=== PATIENT | female | born 1950 | race Caucasian/White ===

== ENCOUNTER 2016-06-17 12:33 | Observation (INO) | payer OTHER ==
[2016-06-17] MEDS ORDERED: Albuterol-Ipratrop 3 mg / 0.5 (3 ml) UD ONE ×2 (12:37→14:40)
[2016-06-17] MEDS ORDERED: Albuterol-Ipratrop 3 mg / 0.5 (3 ml) UD INH STA ×2 (12:48→13:54)
[2016-06-17 14:45] LABS: BASO % 0.2 % (0.0-2.0); EOS # 0.3 K/uL (0.0-0.7); EOS % 5.3 % (0.0-4.0); HEMATOCRIT 39.6 % (34.0-47.0); LYMPH # 1.4 K/uL (1.0-4.3); LYMPH % 23.9 % (20.0-40.0); MEAN CELL VOLUME 85.5 fL (81.0-99.0); MEAN CORPUSCULAR HEMOGLOBIN 28.3 pg (27.0-31.0); MEAN CORPUSCULAR HGB CONC 33.1 g/dL (33.0-37.0); MEAN PLATELET VOLUME 11.2 fL (7.2-11.7); MONO # 0.4 K/uL (0.0-0.8); MONO % 6.3 % (0.0-10.0); RED CELL DISTRIBUTION WIDTH 14.1 % (11.5-14.5); WHITE BLOOD COUNT 5.9 K/uL (4.8-10.8)
[2016-06-17 14:53] LABS: CHLORIDE 99 mmol/L (98-107)
[2016-06-17 14:54] LABS: SODIUM 144 mmol/L (132-148)
[2016-06-17 14:56] LABS: ALB/GLOB RATIO 1.2 (1.0-2.1); ALKALINE PHOSPHATASE 76 U/L (38-126); AST/SGOT 48 U/L (14-36); BILIRUBIN,TOTAL 1.1 mg/dL (0.2-1.3); CARBON DIOXIDE 30 mmol/L (22-30); GFR AFRICAN-AMERICAN > 60; POTASSIUM 4.8 mmol/L (3.6-5.2); TOTAL PROTEIN 8.1 g/dL (6.3-8.3)
[2016-06-17 14:57] LABS: ALT/SGPT 34 U/L (9-52); BLOOD UREA NITROGEN 11 mg/dL (7-17); CALCIUM 9.2 mg/dl (8.6-10.4); GLUCOSE,RANDOM 88 mg/dL (65-105)
--- NOTE | 2016-06-17 15:11 | RAD ---
HISTORY: SOB COMPARISON: None available TECHNIQUE: Chest, one view. FINDINGS: Examination limited by habitus. LUNGS: Minimal interstitial prominence and peribronchiolar cuffing centrally. No focal consolidation. Please note that chest x-ray has limited sensitivity for the detection of pulmonary masses. PLEURA: No significant pleural effusion identified. No definite pneumothorax . CARDIOVASCULAR: The cardiomediastinal silhouette appears within normal limits of size. OSSEOUS STRUCTURES: No acute osseous abnormality identified. VISUALIZED UPPER ABDOMEN: Unremarkable. OTHER FINDINGS: None. IMPRESSION: Minimal interstitial prominence and peribronchiolar cuffing centrally. Findings consistent with mild reactive or inflammatory airway disease.
--- NOTE | 2016-06-17 15:33 | C.PDOC ---
History Of Present Illness 65 year old female presents to the ED with complaints of vague chest discomfort for the past 2 days. Patient states she was seen by Dr. Nereida Singh earlier today for asthma and was given steroids, nebulizer, and nebulizer machine. She has no other complaints at this time. Time Seen by Provider: 06/17/16 13:48 Chief Complaint (Nursing): Respiratory Distress History Per: Patient History/Exam Limitations: no limitations Onset/Duration Of Symptoms: Days Current Symptoms Are (Timing): Still Present Severity: Mild Past Medical History Reviewed: Historical Data, Nursing Documentation, Vital Signs Vital Signs: Last Vital Signs Temp 97.8 F 06/17/16 16:34 Pulse 88 06/17/16 19:31 Resp 18 06/17/16 16:28 BP 145/90 06/17/16 16:28 Pulse Ox 98 06/17/16 16:33 - Medical History PMH: Asthma, HTN Family History: States: Unknown Family Hx - Social History Hx Alcohol Use: No Hx Substance Use: No Review Of Systems Except As Marked, All Systems Reviewed And Found Negative. Constitutional: Negative for: Fever, Chills, Sweats Cardiovascular: Positive for: Chest Pain. Negative for: Palpitations Respiratory: Negative for: Cough, Shortness of Breath Gastrointestinal: Negative for: Vomiting Physical Exam - Physical Exam Appears: Non-toxic, No Acute Distress Skin: Normal Color, Warm, Dry Head: Atraumatic, Normacephalic Eye(s): bilateral: Normal Inspection Oral Mucosa: Moist Chest: Symmetrical, No Deformity, No Tenderness Cardiovascular: Rhythm Regular Respiratory: No Accessory Muscle Use, No Rales, No Rhonchi, Wheezing (+Mild scattered wheezing) Gastrointestinal/Abdominal: Soft Extremity: Normal ROM, No Deformity Neurological/Psych: Oriented x3, Normal Speech, Normal Cognition ED Course And Treatment - Laboratory Results Result Diagrams: 06/17/16 14:40 06/17/16 14:40 O2 Sat by Pulse Oximetry: 98 (Room air) Pulse Ox Interpretation: Normal - Radiology CXR: Viewed By Me, Read By Radiologist CXR Interpretation: Yes: Other (Minimal interstitial prominence and peribronchiolar cuffing centrally. Findings consistent with mild reactive or inflammatory airway disease.) Progress Note: CXR, EKG, Flu swab, Blood work, and Urinalysis ordered and reviewed. Patient treated with Prednisone, Pepcid, NTG, Lovenox, and DuoNeb. Medical Decision Making Medical Decision Making: seen by PMD this AM, prescribed neb machine, steroid taper, box of duonebs so no new Rx's go write for this pts MILD sob/wheezing. Perhaps sent to r/o ACS because of [facility]scp/borning, now with positive trop and normal CXR ASA and lovenox ordered 1545: paged Dr. Rojas covering pt's for Dr. Nereida Singh, ok to Tele obs d/w Son @ bedside, pt had similar + troponin episode 05/22 with ? Cardiology follow-up No daily cardiac labs. Disposition Doctor Will See Patient In The: Hospital Counseled Patient/Family Regarding: Studies Performed, Diagnosis - Disposition Disposition: HOSPITALIZED Disposition Time: 15:47 Condition: GOOD - Clinical Impression Clinical Impression: Chest pain, Asthma, Troponin level elevated - Scribe Statement The provider has reviewed the documentation as recorded by the Scribe Juaquin Mtz. Provider Attestation: All medical record entries made by the Scribe were at my direction and personally dictated by me. I have reviewed the chart and agree that the record accurately reflects my personal performance of the history, physical exam, medical decision making, and the department course for this patient. I have also personally directed, reviewed, and agree with the discharge instructions and disposition.
[2016-06-17 15:41] LABS: RBC URINE 1 /hpf (0-3); URINE BILIRUBIN NEGATIVE (NEGATIVE); URINE BLOOD NEGATIVE (NEGATIVE); URINE COLOR Straw (YELLOW); URINE GLUCOSE (UA) NORMAL (Normal); URINE KETONE NEGATIVE (NEGATIVE); URINE LEUKOCYTE ESTERASE NEG Leu/uL (Negative); URINE PROTEIN NEGATIVE (NEGATIVE); URINE UROBILINOGEN NORMAL mg/dL (0.2-1.0); WBC URINE 2 /hpf (0-5)
[2016-06-17] MEDS ORDERED: Enoxaparin 60 mg Syringe SC STA (15:42)
[2016-06-17] MEDS ORDERED: Enoxaparin 80 mg Syringe ONE (15:55)
[2016-06-17] MEDS ORDERED: Nitroglycerin 2% Ointment Foilpak UD TOP STA (16:14)
[2016-06-17] MEDS ORDERED: Nitroglycerin 2% Ointment Foilpak UD TOP ONE (16:28)
[2016-06-17] MEDS: Albuterol-Ipratrop 3 mg / 0.5 (3 ml) UD INH SCH (19:27)
[2016-06-17] MEDS: MethylPREDNISolone 40 mg Vial IVP SCH (19:27)
[2016-06-18] MEDS: Albuterol-Ipratrop 3 mg / 0.5 (3 ml) UD INH SCH ×4 (01:09→19:10)
[2016-06-18] MEDS: MethylPREDNISolone 40 mg Vial IVP SCH ×3 (02:38→18:35)
[2016-06-18 05:10] LABS: BASO % 0.1 % (0.0-2.0); LYMPH # 0.6 K/uL (1.0-4.3); LYMPH % 11.3 % (20.0-40.0); MEAN CELL VOLUME 85.9 fL (81.0-99.0); MEAN CORPUSCULAR HEMOGLOBIN 28.5 pg (27.0-31.0); MEAN CORPUSCULAR HGB CONC 33.1 g/dL (33.0-37.0); MEAN PLATELET VOLUME 11.8 fL (7.2-11.7); MONO % 0.9 % (0.0-10.0); NRBC % 0.2 % (0.0-2.0); WHITE BLOOD COUNT 5.2 K/uL (4.8-10.8)
[2016-06-18 05:13] LABS: CHLORIDE 98 mmol/L (98-107); POTASSIUM 3.8 mmol/L (3.6-5.2); SODIUM 144 mmol/L (132-148)
[2016-06-18 05:15] LABS: ALB/GLOB RATIO 1.2 (1.0-2.1); AST/SGOT 25 U/L (14-36); BILIRUBIN,TOTAL 0.5 mg/dL (0.2-1.3); CARBON DIOXIDE 30 mmol/L (22-30); GFR AFRICAN-AMERICAN > 60; TOTAL PROTEIN 7.1 g/dL (6.3-8.3)
[2016-06-18 05:16] LABS: ALKALINE PHOSPHATASE 66 U/L (38-126); ALT/SGPT 27 U/L (9-52); BLOOD UREA NITROGEN 20 mg/dL (7-17); CALCIUM 9.1 mg/dl (8.6-10.4); GLUCOSE,RANDOM 158 mg/dL (65-105)
[2016-06-18] MEDS: Enoxaparin 40 mg Syringe SC SCH (09:41)
--- NOTE | 2016-06-18 14:37 | CP.PCM.HP ---
History of Present Illness - History of Present Illness History of Present Illness: COMPREHENSIVE HISTORY & PHYSICAL EXAM HPI PT HAVING COUGH WITH SOB A/W BURNING IN RETROSTERNAL AREA . TNI POS. IN ER PAST HIST. HAD CATH IN [facility] LAST YEAR WAS TOLD NOR. CORONARIES COPD/HTN PERSONAL HIST: Smoking. N Alcohol. N Allergy N Travel_- . FAMILY HIST : ROS : Constitutional: Negative for weight change, chills, night sweats, fatigue and usage of assist device. Eyes: Negative for redness, swelling, itching, discharge, vision changes, blurry vision, double vision, glaucoma, cataracts, Ears: Negative for hearing loss, ringing, , tinnitus, vertigo Nose: Negative for rhinorrhea, stuffiness, sniffing, itching, postnasal drip, discoloration, nasal congestion and epistaxis. Throat: Negative for throat clearing, sore throat, hoarseness, difficulty swallowing and difficulty speaking. Respiratory: POS for cough, chest tightness, sputum or phlegm, chronic cough, NO hemoptysis, wheezing, snoring at night, pleuritic chest pain and daytime somnolence. Cardiovascular: POS for chest pain, palpitations, orthopnea, PND, Edema of legs, leg cramps, angina, claudication, , irregular heartbeat, Neurology: Negative for irritability, muscle weakness, numbness and tingling, seizures, tremors, migraines, slurred speech, syncope, memory loss, mood changes , recurrent headaches Gastrointestinal: Negative for difficulty swallowing, diarrhea, constipation, black stools, rectal bleeding, nausea, flatulence, reflux, poor appetite, changes in bowel habits, abdominal pain Genitourinary: Negative for frequent urination, hematuria, discharge, incontinence, urinary retention, frequent UTI, Psychiatric: Negative for depression, anxiety/panic, suicidal tendencies, Musculoskeletal: Negative for swollen joints, back pain, , neck pain, morning stiffness of joints, . Skin: Negative for rash, ulcers, itching, dry skin and pigmented lesions. P/E: Constitutional: Appears stated age and in no apparent distress. Head: Normocephalic. Ears: External ear canals patent without inflammation. Tympanic membranes intact with normal light reflex and landmark. Eyes: Pupils are central, bilaterally equal, symmetrical and reacts to light with normal movements and no icterus or pallor. Nose: External nares are patent. Mucosa is pink Mouth-Throat: Good general appearance and condition. No post-pharyngeal/oropharyngeal erythema and tonsillar hypertrophy. Good dental hygiene. Neck-Lymphatic: Neck is supple with normal ROM, no thyromegaly, lymph nodes or masses. JVD is normal with no carotid bruit. Lungs MEI WHEEZOING Cardiovascular: S1 and S2 are normal with no murmurs, gallops and rub. GI Exam: No hepatomegaly. Abdomen is soft and non-tender. No Organomegaly , masses or hernias are evident and bowel sounds are normal and active. Neurology: Higher function and all cranial nerves intact, with no gross motor or sensory deficit. Superficial and deep reflexes are normal with downwards planters. No cerebellar deficit with normal gait. Musculoskeletal: No tender spots with normal curvature of the spine with no swelling or restricted ROM of the small and large joints. Extremities: Homans sign absent. Intact pulses with no pitting edema, calf tenderness or skin color changes. Skin: No rash, eruptions or abnormal skin pigmentation LAB/RADIOLOGY: ASSESMENT : NON ST ID WITH POS TNI COPD WITH EXACERBATION FOLLOW ACS PROTOCOL Present on Admission - Present on Admission Any Indicators Present on Admission: No Past Patient History - Past Medical History & Family History Past Medical History?: Yes - Past Social History Smoking Status: Never Smoked - CARDIAC Hx Hypertension: Yes - PULMONARY Hx Asthma: Yes - MUSCULOSKELETAL/RHEUMATOLOGICAL Hx Falls: No - PSYCHIATRIC Hx Substance Use: No - SURGICAL HISTORY Hx Surgeries: No - ANESTHESIA Hx Anesthesia: No Hx Anesthesia Reactions: No Meds Home Medications: Home Medication List Medication Instructions Recorded Confirmed Type Amoxicillin/Clavulanate [Augmentin 1 tab PO Q12 #10 tab 06/21/16 Rx 875 MG-125 MG] Methylprednisolone [Medrol Dose 4 mg PO DAILY #21 mg 06/21/16 Rx Pack (21 tabs)] Allergies/Adverse Reactions: Allergies Allergy/AdvReac Type Severity Reaction Status Date / Time No Known Allergies Allergy Verified 06/17/16 12:47 Results - Vital Signs Recent Vital Signs: Last Vital Signs Temp 97.9 F 06/18/16 08:41 Pulse 69 06/18/16 08:41 Resp 20 06/18/16 08:41 BP 133/76 06/18/16 08:41 Pulse Ox 95 06/18/16 08:41 - Labs Result Diagrams: 06/18/16 04:58 06/18/16 04:58 Labs: Laboratory Results - last 24 hr 06/17/16 06/18/16 22:30 04:58 WBC 5.2 RBC 4.31 Hgb 12.3 Hct 37.0 MCV 85.9 MCH 28.5 MCHC 33.1 RDW 14.0 Plt Count 157 MPV 11.8 H Neut % (Auto) 87.7 H Lymph % (Auto) 11.3 L [place] % (Auto) 0.9 Eos % (Auto) 0.0 Baso % (Auto) 0.1 Neut # 4.6 Lymph # 0.6 L [place] # 0.0 Eos # 0.0 Baso # 0.0 Sodium 144 Potassium 3.8 Chloride 98 Carbon Dioxide 30 Anion Gap 19 BUN 20 H Creatinine 0.6 L Est GFR ( Amer) > 60 Est GFR (Non-Af Amer) > 60 Random Glucose 158 H Calcium 9.1 Total Bilirubin 0.5 AST 25 ALT 27 Alkaline Phosphatase 66 Total Creatine Kinase 84 71 CK-MB (Mass) 2.58 2.20 Troponin I 0.2930 H* Troponin I, Quant 0.5370 H* 0.2930 H* Total Protein 7.1 Albumin 3.9 Globulin 3.2 Albumin/Globulin Ratio 1.2
[2016-06-18] MEDS ORDERED: Promethazine DM 6.25 mg-15 mg/5 ml Syrup PO PRN (14:38)
[2016-06-19 00:45] VITALS: RESP 20
[2016-06-19] MEDS: Albuterol-Ipratrop 3 mg / 0.5 (3 ml) UD INH SCH ×4 (02:08→20:36)
[2016-06-19] MEDS: MethylPREDNISolone 40 mg Vial IVP SCH ×3 (02:22→18:36)
[2016-06-19] MEDS: Enoxaparin 40 mg Syringe SC SCH (09:42)
--- NOTE | 2016-06-19 13:02 | CP.PCM.PN ---
Subjective - Date & Time of Evaluation Date of Evaluation: 06/19/16 Time of Evaluation: 13:00 - Subjective Subjective: SOB LESS WHEEZING POS TNI PT. HAD SIMILAR SCENARIO LAST YEAR WITH POS TNI, AND WAS TOLD TO HAVE NOR. COR. WILL REVIEW CATH REPORT AND MAKE SURE IT IS NORMAL OR MINIMAL CAD Objective - Vital Signs/Intake and Output Vital Signs (last 24 hours): Temp Pulse Resp BP Pulse Ox 97.9 F 78 20 143/81 98 06/19/16 08:25 06/19/16 08:25 06/19/16 08:25 06/19/16 08:25 06/19/16 08:25 Intake and Output: 06/19/16 06/19/16 11:59 23:59 Intake Total 240 Balance 240 - Medications Medications: Current Medications Albuterol/Ipratropium (Duoneb 3 Mg/0.5 Mg (3 Ml) Ud) 3 ml INH RQ6 [facility] Last Admin: 06/19/16 07:57 Dose: 3 ml Enoxaparin Sodium (Lovenox) 40 mg SC DAILY [facility] Last Admin: 06/19/16 09:42 Dose: 40 mg Influenza Virus Vaccine (Afluria) 45 mcg IM .ONCE ONE Stop: 06/20/16 10:01 Losartan Potassium (Cozaar) 50 mg PO DAILY [facility] Last Admin: 06/19/16 09:42 Dose: 50 mg Methylprednisolone (Solu-Medrol) 40 mg IVP Q8H [facility] Last Admin: 06/19/16 09:45 Dose: 40 mg Montelukast Sodium (Singulair) 10 mg PO HS [facility] Last Admin: 06/18/16 21:32 Dose: 10 mg Pneumococcal Polyvalent Vaccine (Pneumovax 23 Vaccine) 0.5 ml IM .ONCE ONE Stop: 06/20/16 10:01 Promethazine HCl/Dextromethorphan (Phenergan Dm Syrup) 5 ml PO Q6H PRN PRN Reason: Cough and congestion - Labs Labs: 06/18/16 04:58 06/18/16 04:58
--- NOTE | 2016-06-19 15:26 | CARD ---
APPROVED REPORT EXAM: Two-dimensional and M-mode echocardiogram with Doppler and color Doppler. Other Information Quality : GoodRhythm : INDICATION Dyspnea Cardiac Disease: CAD Chest Pain Non STEMI ELEVATED TROPONIN LEVEL M-Mode DIMENSIONS RVDd1.52 (2.1-3.2cm)Left Atrium (MM)3.98 (2.5-4.0cm) IVSd0.91 (0.7-1.1cm)Aortic Root2.64 (2.2-3.7cm) LVDd4.80 (4.0-5.6cm)Aortic Cusp Exc.1.97 (1.5-2.0cm) PWd0.88 (0.7-1.1cm)FS (%) 46 % LVDs2.58 (2.0-3.8cm)LVEF (%)78 (>50%) Mitral Valve MV E Apdtokfa028.9cm/sMV A Xxgndwfi284.2cm/sE/A ratio0.8 TDI E/Lateral E'0.0E/Medial E'0.0 Tricuspid Valve TR Peak Tnycczkr666xv/sTR Peak Gr.[id number] LEFT VENTRICLE The left ventricle is normal size. There is normal left ventricular wall thickness. Left ventricle systolic function is normal. The Ejection Fraction is >70%. There is normal LV segmental wall motion. Tissue Doppler imaging reveals abnormal left ventricular diastolic dysfunction. RIGHT VENTRICLE The right ventricle is normal size. There is normal right ventricular wall thickness. The right ventricular systolic function is normal. ATRIA The left atrium size is normal. The right atrium size is normal. The interatrial septum is intact with no evidence for an atrial septal defect. AORTIC VALVE The aortic valve is normal in structure. No aortic regurgitation is present. There is no aortic valvular stenosis. There is no aortic valvular vegetation. MITRAL VALVE The mitral valve is normal in structure. There is no evidence of mitral valve prolapse. There is no mitral valve stenosis. Mitral regurgitation is mild. TRICUSPID VALVE The tricuspid valve is normal in structure. There is mild tricuspid regurgitation. Right ventricular systolic pressure is estimated at 40-50 mmHg. There is mild-moderate pulmonary hypertension. There is no tricuspid valve prolapse or vegetation. There is no tricuspid valve stenosis. PULMONIC VALVE The pulmonic valve is not well visualized. There is no pulmonic valvular regurgitation. There is no pulmonic valvular stenosis. GREAT VESSELS The aortic root is normal in size. PERICARDIAL EFFUSION There is no significant pericardial effusion. <Conclusion> Left ventricle systolic function is normal. The Ejection Fraction is >70%. Diastolic dysfunction. No aortic regurgitation is present. There is no mitral valve regurgitation noted. There is no pulmonic valvular regurgitation. There is mild tricuspid regurgitation. There is mild-moderate pulmonary hypertension.
--- NOTE | 2016-06-19 22:11 | CARD ---
APPROVED REPORT EKG Measurement Heart [id number] <Conclusion> Normal sinus rhythm Possible Anterior infarct, age undetermined Abnormal ECG
[2016-06-20] MEDS: Albuterol-Ipratrop 3 mg / 0.5 (3 ml) UD INH SCH ×4 (01:36→19:48)
[2016-06-20] MEDS: MethylPREDNISolone 40 mg Vial IVP SCH ×2 (02:08→21:58)
[2016-06-20] MEDS: Enoxaparin 40 mg Syringe SC SCH (09:30)
[2016-06-20] MEDS ORDERED: Pneumococcal 23-Valent Vaccine IM ONE (10:00)
[2016-06-20] MEDS ORDERED: Influenza Virus Vaccine 45 mcg/0.5 ml Syr IM ONE (10:00)
--- NOTE | 2016-06-20 13:16 | CP.PCM.PN ---
Subjective - Date & Time of Evaluation Date of Evaluation: 06/20/16 Time of Evaluation: 13:15 - Subjective Subjective: NO FURTHER CP TAPER STEROIDS CHECK CATH REPORT Objective - Vital Signs/Intake and Output Vital Signs (last 24 hours): Temp Pulse Resp BP Pulse Ox 97.5 F L 80 20 161/84 H 95 06/20/16 08:52 06/20/16 08:52 06/20/16 08:52 06/20/16 08:52 06/20/16 08:52 Intake and Output: 06/20/16 06/20/16 11:59 23:59 Intake Total 240 Balance 240 - Medications Medications: Current Medications Albuterol/Ipratropium (Duoneb 3 Mg/0.5 Mg (3 Ml) Ud) 3 ml INH RQ6 [facility] Last Admin: 06/20/16 07:48 Dose: 3 ml Enoxaparin Sodium (Lovenox) 40 mg SC DAILY [facility] Last Admin: 06/20/16 09:30 Dose: 40 mg Losartan Potassium (Cozaar) 50 mg PO DAILY [facility] Last Admin: 06/20/16 09:30 Dose: 50 mg Methylprednisolone (Solu-Medrol) 40 mg IVP Q8H [facility] Last Admin: 06/20/16 02:08 Dose: 40 mg Montelukast Sodium (Singulair) 10 mg PO HS [facility] Last Admin: 06/19/16 21:27 Dose: 10 mg Promethazine HCl/Dextromethorphan (Phenergan Dm Syrup) 5 ml PO Q6H PRN PRN Reason: Cough and congestion - Labs Labs: 06/18/16 04:58 06/18/16 04:58
[2016-06-21 01:06] VITALS: TEMP 97.8
[2016-06-21] MEDS: Albuterol-Ipratrop 3 mg / 0.5 (3 ml) UD INH SCH ×2 (01:15→07:53)
[2016-06-21 08:03] VITALS: BP 155/79; O2SAT 96
[2016-06-21 08:50] VITALS: PULSE 90
[2016-06-21] MEDS: Enoxaparin 40 mg Syringe SC SCH (09:31)
[2016-06-21] MEDS: MethylPREDNISolone 40 mg Vial IVP SCH (09:31)
--- NOTE | 2016-06-21 11:56 | CP.PCM.PN ---
Subjective - Date & Time of Evaluation Date of Evaluation: 06/21/16 Time of Evaluation: 11:00 - Subjective Subjective: Pt seen and examined today , cough and congestion improved,no wheezing , denies any chest pain, sob, palpitations, N/V Objective - Vital Signs/Intake and Output Vital Signs (last 24 hours): Temp Pulse Resp BP Pulse Ox 97.8 F 90 20 155/79 H 96 06/21/16 08:02 06/21/16 08:46 06/21/16 08:02 06/21/16 08:02 06/21/16 08:02 - Medications Medications: Current Medications Albuterol/Ipratropium (Duoneb 3 Mg/0.5 Mg (3 Ml) Ud) 3 ml INH RQ6 [facility] Last Admin: 06/21/16 07:53 Dose: 3 ml Enoxaparin Sodium (Lovenox) 40 mg SC DAILY [facility] Last Admin: 06/21/16 09:31 Dose: 40 mg Losartan Potassium (Cozaar) 50 mg PO DAILY [facility] Last Admin: 06/21/16 09:31 Dose: 50 mg Methylprednisolone (Solu-Medrol) 40 mg IVP Q12 [facility] Last Admin: 06/21/16 09:31 Dose: 40 mg Montelukast Sodium (Singulair) 10 mg PO HS [facility] Last Admin: 06/20/16 21:58 Dose: 10 mg Promethazine HCl/Dextromethorphan (Phenergan Dm Syrup) 5 ml PO Q6H PRN PRN Reason: Cough and congestion Assessment and Plan - Assessment and Plan (Free Text) Assessment: A/P 65 yr old female admitted for cough, sob, chest pain troponin - + recent cath from [facility]- Normal coronaries vss- stable , a febrile blood culture- Negative x 3 days D/W with Dr. Rojas, stable for discharge home today and f/u with Dr. Andres office and Dr. Rojas office out pt lexican stress test at [facility] Discharge plan discussed with patient and at bed side , who understands and agrees with plan RX given for augmentin an d medrol dose pack Rx given for out pt myoview stress test , Pt instructed to call cardiology dept at [facility] to schedule an appointment Pt instructed to returns to ED if symptoms returns
--- NOTE | 2016-06-21 13:40 | CP.PCM.DIS ---
Provider - Provider Date of Admission: 06/20/16 15:44 Attending physician: Asif Rojas MD Time Spent in preparation of Discharge (in minutes): 35 Hospital Course - Lab Results Lab Results: Most Recent Lab Values WBC 5.2 K/uL (4.8-10.8) 06/18/16 04:58 RBC 4.31 Mil/uL (3.80-5.20) 06/18/16 04:58 Hgb 12.3 g/dL (11.0-16.0) 06/18/16 04:58 Hct 37.0 % (34.0-47.0) 06/18/16 04:58 MCV 85.9 fL (81.0-99.0) 06/18/16 04:58 MCH 28.5 pg (27.0-31.0) 06/18/16 04:58 MCHC 33.1 g/dL (33.0-37.0) 06/18/16 04:58 RDW 14.0 % (11.5-14.5) 06/18/16 04:58 Plt Count 157 K/uL (130-400) 06/18/16 04:58 MPV 11.8 fL (7.2-11.7) H 06/18/16 04:58 Neut % (Auto) 87.7 % (50.0-75.0) H 06/18/16 04:58 Lymph % (Auto) 11.3 % (20.0-40.0) L 06/18/16 04:58 [place] % (Auto) 0.9 % (0.0-10.0) 06/18/16 04:58 Eos % (Auto) 0.0 % (0.0-4.0) 06/18/16 04:58 Baso % (Auto) 0.1 % (0.0-2.0) 06/18/16 04:58 Neut # 4.6 K/uL (1.8-7.0) 06/18/16 04:58 Lymph # 0.6 K/uL (1.0-4.3) L 06/18/16 04:58 [place] # 0.0 K/uL (0.0-0.8) 06/18/16 04:58 Eos # 0.0 K/uL (0.0-0.7) 06/18/16 04:58 Baso # 0.0 K/uL (0.0-0.2) 06/18/16 04:58 Sodium 144 mmol/L (132-148) 06/18/16 04:58 Potassium 3.8 mmol/L (3.6-5.2) 06/18/16 04:58 Chloride 98 mmol/L (98-107) 06/18/16 04:58 Carbon Dioxide 30 mmol/L (22-30) 06/18/16 04:58 Anion Gap 19 (10-20) 06/18/16 04:58 BUN 20 mg/dL (7-17) H 06/18/16 04:58 Creatinine 0.6 MG/DL (0.7-1.2) L 06/18/16 04:58 Est GFR ( Amer) > 60 06/18/16 04:58 Est GFR (Non-Af Amer) > 60 06/18/16 04:58 Random Glucose 158 mg/dL (65-105) H 06/18/16 04:58 Calcium 9.1 mg/dl (8.6-10.4) 06/18/16 04:58 Total Bilirubin 0.5 mg/dL (0.2-1.3) 06/18/16 04:58 AST 25 U/L (14-36) 06/18/16 04:58 ALT 27 U/L (9-52) 06/18/16 04:58 Alkaline Phosphatase 66 U/L (38-126) 06/18/16 04:58 Total Creatine Kinase 71 U/L (30-135) 06/18/16 04:58 CK-MB (Mass) 2.20 ng/mL (0.0-3.38) 06/18/16 04:58 Troponin I 0.2930 ng/mL (0.00-0.120) H* 06/18/16 04:58 Troponin I, Quant 0.2930 ng/mL (0.00-0.120) H* 06/18/16 04:58 Total Protein 7.1 g/dL (6.3-8.3) 06/18/16 04:58 Albumin 3.9 g/dL (3.5-5.0) 06/18/16 04:58 Globulin 3.2 gm/dL (2.2-3.9) 06/18/16 04:58 Albumin/Globulin Ratio 1.2 (1.0-2.1) 06/18/16 04:58 Urine Color Straw (YELLOW) 06/17/16 15:23 Urine Clarity Clear (Clear) 06/17/16 15:23 Urine pH 8.0 (5.0-8.0) 06/17/16 15:23 Ur Specific [place] 1.005 (1.003-1.030) 06/17/16 15:23 Urine Protein Negative mg/dL (NEGATIVE) 06/17/16 15:23 Urine Glucose (UA) Normal mg/dL (Normal) 06/17/16 15: Urine Ketones Negative mg/dL (NEGATIVE) 06/17/16 15: Urine Blood Negative (NEGATIVE) 06/17/16 15:23 Urine Nitrate Negative (NEGATIVE) 06/17/16 15:23 Urine Bilirubin Negative (NEGATIVE) 06/17/16 15: Urine Urobilinogen Normal mg/dL (0.2-1.0) 06/17/16 15:23 Ur Leukocyte Esterase Neg Jenny/uL (Negative) 06/17/16 15:23 Urine WBC (Auto) 2 /hpf (0-5) 06/17/16 15:23 Urine RBC (Auto) 1 /hpf (0-3) 06/17/16 15:23 Ur Squamous Epith Cells < 1 /hpf (0-5) 06/17/16 15:23 Influenza Typ A,B (EIA) Negative for flu a/b (NEGATIVE) 06/17/16 13:53 - Hospital Course Hospital Course: PT HAVING COUGH WITH SOB A/W BURNING IN RETROSTERNAL AREA . TNI POS. IN ER PAST HIST. HAD CATH IN [facility] LAST YEAR WAS TOLD NOR. CORONARIES COPD/HTN TNI POS PT IMPROVED ON IV AB/STEROIDS CARD. CATH DONE IN [facility] 2016 REVIEWED NORMAL CO. N EF IN VIEW OF SAME SCENARIO WILL GET IV LEXISCAN OUT PT Discharge Plan - Discharge Medications Prescriptions: Amoxicillin/Clavulanate [Augmentin 875 MG-125 MG] 1 tab PO Q12 #10 tab Methylprednisolone [Medrol Dose Pack (21 tabs)] 4 mg PO DAILY #21 mg - Follow Up Plan Condition: GOOD Disposition: HOME/ ROUTINE Instructions: Amoxicillin/Clavulanate Potassium (By mouth), Methylprednisolone (By mouth), Chest Pain (DC), Asthma (DC), Heart Healthy Diet (DC) Additional Instructions: f/u with Dr. Nereida Morelos office in 1 week Continue medication as pe rMed. Rec. Myoview lexican stress test by Dr[facility] - call for scheduling- [phone] Referrals: Asif Rojas MD [Staff Provider] -
== END 2016-06-21 13:01 | disposition home or self-care (01) ==
LOC: C.ER 12:33 → C.9E 15:44 → C.6T 16:20 → INTOOBSV 06-20 15:44 → OBSVTOIN 06-20 15:44
PROVIDERS: ADMIT Internal Medicine Cardiovascular Disease; ATTEND Internal Medicine Cardiovascular Disease
DX: I21.4 Non-ST elevation (NSTEMI) myocardial infarction (principal); J44.1 Chronic obstructive pulmonary disease with (acute) exacerbation; I10 Essential (primary) hypertension; J45.909 Unspecified asthma, uncomplicated; Z82.49 Family history of ischemic heart disease and other diseases of the circulatory system; Z82.5 Family history of asthma and other chronic lower respiratory diseases; Z23 Encounter for immunization
CPT/HCPCS: 36415; 71010; 80053; 81001; 84484; 85025; 87040; 87804; 90471; 90732; 93005; 93306; 94150; 94640; 94760; 96372; 97116; 97161; 99284; G0378; G8978; G8979; G8980; J1650; J2920; Q2035